=== PATIENT | male | born 1965 | race Caucasian/White ===

== ENCOUNTER → 2020-09-30 14:53 | Outpatient (CLI) | payer SELFPAY ==
--- NOTE | 2020-09-30 15:01 | ECHOD_ITS ---
Reason For Study: Abnormal EKG Procedure This was a 2D Doppler, Color Flow transthoracic echocardiogram. Exam performed in department. Left Ventricle Normal LV size. Left ventricular systolic function is normal. The estimated ejection fraction is 65 %. Stage 2 diastolic dysfunction. No regional wall motion abnormalities noted. Right Ventricle Normal RV size. Normal systolic function. Atria Normal left atrium. Normal right atrium. Mitral Valve Normal mitral valve. Tricuspid Valve Normal tricuspid valve. Aortic Valve Normal aortic valve. Trisinus/trileaflet aortic valve. Pulmonic Valve Normal pulmonic valve. Great Vessels Normal aortic root. The pulmonary artery is normal size. Normal inferior vena cava. Pericardium/Pleural No pericardial effusion. MMode/2D Measurements & Calculations LVIDd: 4.6 cm IVSd: 1.7 cm LA dimension: 4.3 cm LVIDs: 3.3 cm LVPWd: 1.3 cm FS: 29.1 % LAV(MOD-bp): 93.4 ml LA A4 area: 27.7 cm2 RA A4 area: 18.8 cm2 LAV(MOD-bp) Indexed: 44.1 ml/m2 LAV(MOD-sp2): 92.0 ml LAV(MOD-sp4): 91.8 ml Time Measurements MV dec time: 0.15 sec Doppler Measurements & Calculations MV E max odell: 89.1 cm/sec Lat Peak E' Odell: 11.0 cm/sec Med Peak E' Odell: 7.0 cm/sec MV A max odell: 49.4 cm/sec E/E' lat: 8.1 E/E' med: 12.8 MV E/A: 1.8 MV V2 max: 86.4 cm/sec MV P1/2t max odell: 87.0 cm/sec Ao V2 max: 126.2 cm/sec MV max P.0 mmHg MV P1/2t: 57.4 msec Ao max P.4 mmHg MV V2 mean: 42.6 cm/sec MV dec slope: 444.3 cm/sec2 MV mean P.91 mmHg MVA(P1/2t): 3.8 cm2 MV V2 VTI: 17.7 cm LV V1 max: 120.9 cm/sec PA V2 max: 99.2 cm/sec LV V1 max P.8 mmHg Interpretation Summary Normal LV size. Left ventricular systolic function is normal. The estimated ejection fraction is 65 %. No regional wall motion abnormalities noted. Stage 2 diastolic dysfunction. Ordering Physician: Rohit Mosqueda Referring Physician: Rohit Mosqueda Performed By: Alexandru Vernon RCS
== END ==
PROVIDERS: PCP Student in an Organized Health Care Education/Training Program; Referring Provider Internal Medicine Cardiovascular Disease; Visit Provider Internal Medicine Cardiovascular Disease
DX: R94.31 Abnormal electrocardiogram [ECG] [EKG] (principal); R06.00 Dyspnea, unspecified; C62.90 Malignant neoplasm of unspecified testis, unspecified whether descended or undescended
CPT/HCPCS: 93306

== ENCOUNTER 2020-10-02 11:25 | Day surgery (SDC) | payer SELFPAY ==
--- NOTE | 2020-09-28 12:34 | EKG12_ITS ---
Test Reason : PRE OP Blood Pressure : / mmHG Vent. Rate : 106 BPM Atrial Rate : 106 BPM P-R Int : 146 ms QRS Dur : 082 ms QT Int : 338 ms P-R-T Axes : 062 -06 175 degrees QTc Int : 448 ms Sinus tachycardia Septal infarct , age undetermined ST & T wave abnormality, consider anterolateral ischemia Abnormal ECG Confirmed by CLAUDINE BELLAMY, BARBRA ([id number]), art editor JAY RADER ([id number]) on 09/30/2020 6:07:39 AM Referred By: Mj Wolf Confirmed By:BARBRA CHOW MD
[2020-09-28 14:11] LABS: Anion Gap 4 (5-15); BUN 13 mg/dL (7-18); BUN/Creat Ratio 11.1 RATIO (10-20); Calcium,Total 8.9 mg/dL (8.5-10.1); Chloride 103 mmol/L (98-107); Creatinine, Serum 1.17 mg/dL (0.70-1.30); EST Glomerular Filtration Rate 69 mL/min (>60); Est Glom Filt Rate - Afr Amer 84 mL/min (>60); Glucose 82 mg/dL (74-106); Sodium Level 137 mmol/L (136-145)
[2020-09-30 15:45] VITALS: BMI 29.5
[2020-10-02] VITALS (9 sets, daily range): BP systolic 108–197; BP diastolic 71–104; PULSE 63–128; RESP 16–18; TEMP 36.3–37; O2SAT 93–100; BMI 29.1
--- NOTE | 2020-10-02 | TEST_PTH ---
PATIENT: SHERITA RADER LOC: [facility] [place] U#:[id number] AGE/SX: 55/M ROOM: RE10/02/[address]: Dr. Mj Wolf MD : 1965 BED: DIS: 10/02/2020 SPEC #: [id number] RECD: 10/02/20 14:01 STATUS: CARIDAD RELiza #: [id number] DIONNE: 10/02/20 00:[address]: Mj Wolf DEPT: SURGICAL PATHOLOGY RECD BY: Viry Souza ENTERED: 10/02/20 14:22 SP TYPE: TESTICLE OTHR DR: Dr. Randolph Maloney, DO Tissues: Testis, NOS Procedures: Frozen Section (charge) Surgery Specimen Level IV Surgery Specimen Level V HEADER OPERATION: Radical orchiectomy PRE-OP DIAGNOSIS: Abnormal findings on diagnostic imaging of left testicle TISSUE SUBMITTED: Left testicle, frozen section FROZEN SECTION DIAGNOSIS Left testicle, orchiectomy: Fibrous, chronic inflammation and markedly attenuated tubules and spermatogenesis. No evidence of carcinoma. AM:hunter 10/02/2020 Case has been reviewed in consultation with Dr. Burleson who concurs with the above diagnosis. IDC:KEMI MICROSCOPIC DIAGNOSIS Left testicle, radical orchiectomy: Diffuse chronic inflammation involving seminiferous tubule. Negative for carcinoma. See comment. KEMI:hunter 10/06/2020 COMMENT The inflammatory cell infiltrates predominantly centered around the seminiferous tubules and consist predominantly of lymphocytes and a few plasma cells and giant cells. Spermatogenesis is not seen. Correlation with clinical findings and appropriate follow up are necessary. Case has been reviewed in consultation with Dr. Coe who concurs with the above diagnosis. IDC:TARIK MICROSCOPIC DESCRIPTION Slides are reviewed. GROSS DESCRIPTION Received fresh for frozen section consultation labeled with the patient's name is a specimen designated left testicle. The specimen consists of a testicle with surrounding soft tissue. The specimen measures 13 x 6 x 3 cm. Dissection reveals a firm, huggins testes measuring 7.5 x 5 cm. A distinct rete testes is not identified. The superior and inferior epididymis are grossly unremarkable. The testicular parenchyma is firm and not spongy. The process involves the entire testes. A sales representative business courses portion of the testes is submitted for frozen section consultation (cassette 1). Protocol Manager sections are submitted as follows: 1 - testes, frozen section, 2 - tissue at margin of resection, 3 - presumed caput epididymis, 4 - presumed cauda epididymis, 5-10 - sales representative business courses sections of testes. / AM:hunter 10/05/20 TC:3 CPT: 44563, 77897, 05938
--- NOTE | 2020-10-02 08:04 | PCM.HP.STD ---
Problem List (1) Abnormal finding on diagnostic imaging of left testicle Status: Acute History of Present Illness Date of Admission: 10/02/20 Chief Complaint: Abnormal left testicle The patient is a 55 year old male who was noticed firm hard testicle since June has been treated with antibiotics I did ultrasound in the office recently and the testicle is definitely abnormal has higher echogenicity is firmer is harder on ultrasound it looks completely different than the right testicle which is completely normal. There are certainly concerned that this could be cancerous so given the abnormal findings on the ultrasound the enlarged firm testicle organ to proceed with a radical left orchiectomy. Past Medical History Past Medical History (Chronic Problems): Chronic Problems (Last Reviewed 09/30/20 @ 16:[address] Rohit Mosqueda MD) Essential (primary) hypertension (Chronic) Nicotine dependence (Chronic) Medical History: Medical History (Last Reviewed 09/30/20 @ 16:[address] Rohit Mosqueda MD) Essential (primary) hypertension (Chronic) I10 Testicular cancer (Suspected) C62.90 Nicotine dependence (Chronic) F17.200 MICKY (generalized anxiety disorder) F41.1 Allergies No Known Allergies Allergy (Verified 09/30/20 15:37) Home Medications: Ambulatory Orders Medication Instructions Recorded Ascorbic Acid [Vitamin C] 500 mg PO DAILY@0800 09/25/20 Cholecalciferol (VIT D3) [Vitamin 1,000 unit PO DAILY 09/25/20 D] Garlic 100 mg PO DAILY 09/25/20 hydrochlorothiazide 12.5 mg tablet 12.5 mg PO DAILY 09/30/20 hydroxyzine HCl 25 mg tablet 25 mg PO TID PRN 09/30/20 lisinopril 20 mg tablet 20 mg PO DAILY #60 tab 09/30/20 Surgical History: no surgical history Smoking Status: Current every day smoker Tobacco Use: Cigarettes Review of Systems Constitutional: Denies: Chills, Fever, Weight Change HEENT: Denies: Head Aches, Sinus Congestion, Sinus Drainage Cardiovascular: Denies: Chest Pain, Palpitations Respiratory: Denies: Cough, Shortness of breath at rest, Sputum production Gastrointestinal: Denies: Abdominal Pain, Nausea, Vomiting Genitourinary: Denies: Dysuria Musculoskeletal: Denies: Joint Pain, Joint Tenderness Skin: Denies: Rash, Wounds Neurological: Denies: Numbness, Tingling, Focal weakness Psychiatric: Denies: Anxiety, Depression, Homicidal Ideations, Suicidal Ideations Hematologic/ Lymphatic: Denies: Easy Bruising, Easy Bleeding VTE Information - Inpt Only VTE Present on Admission: No - Physical Exam Vitals/I&O's: Weight: 93.894 kg Body Mass Index (BMI) 29.5 General: Alert, Oriented x3, Cooperative HEENT: Atraumatic, PERRLA, EOMI, Normocephalic Neck: Supple, No JVD, Negative Carotid Bruits Lungs: Clear to auscultation, Normal air movement Cardiovascular: Regular rate, No murmurs Abdomen: Bowel Sounds Present, Soft, Non Tender Extremities: No edema, Capillary Refill Less than 3 Seconds Skin: No rashes, No breakdown Musculoskeletal: No Tenderness to Palpation of Joints or Extremities Neurological: Cranial nerves II-XII grossly intact Psych/Mental Status: Normal Affect, Appropriate Microbiology Past 72 Hours 10/01/20 08:35 Interface Orders SARS-CoV-2 Antigen (Rapid) - Final Current Medications Cefazolin Sodium 2 gm/ Sodium (Chloride) 110 mls @ 150 mls/hr IV PREOP ONE Stop: 10/02/20 15:38 Assessment/Plan All Active Problems (Last Reviewed 09/30/20 @ 16:[address] Rohit Mosqueda MD) Abnormal finding on diagnostic imaging of left testicle (Acute) Encounter for pre-operative cardiovascular clearance (Acute) Abnormal electrocardiogram (Acute) Plan to proceed with a left radical orchiectomy patient understands that it is possible that this testicle which looks abnormal is hard and firm may not be cancerous it may just be scar tissue or inflammation or infection that is not resolving but given the findings that could be malignancy were to proceed with a left radical orchiectomy he is willing to accept that consequence it may not be cancer but given the potential he is willing to undergo surgery to remove the testicle.
[2020-10-02] MEDS: Lactated Ringers 1,000 ML 100 ML IV ×2 (12:18→14:43)
[2020-10-02] MEDS: Cefazolin 2 GM in 0.9% Normal Saline 100 ML IV (13:31)
--- NOTE | 2020-10-02 13:32 | DCINST_ITS ---
Discharge Diet: Light diet - advance as tolerated Discharge Activity: Return to Normal Activity, May not drive while taking narcotic pain medications. Call your doctor if your incision/area has: Continuous Slow Oozing, Sudden Increased Bleeding, Increased Pain/ Swelling, Increased Redness, Foul Smelling Discharge, Swelling at the incision site Call your doctor if you observe: Fever of 101 or Higher Suture Line Care: Avoid Pulling/Pushing, Avoid Pinching/Bending Allergies/Adverse Reactions: Allergies No Known Allergies Allergy (Verified 09/30/20 15:37) Medications to take at Discharge Ascorbic Acid [Vitamin C] 500 mg PO DAILY@0800 09/25/20 Cholecalciferol (VIT D3) [Vitamin D] 1,000 unit PO DAILY 09/25/20 Garlic 100 mg PO DAILY 09/25/20 hydrochlorothiazide 12.5 mg tablet 12.5 mg PO DAILY 09/30/20 hydroxyzine HCl 25 mg tablet 25 mg PO TID PRN 09/30/20 lisinopril 20 mg tablet 20 mg PO DAILY #60 tab 09/30/20 Primary Care Physician: Randolph Maloney DO [Primary Care Provider] - Test Results: Test results from this visit will be discussed in further detail at your follow- up appointment, if applicable. Please Follow Up With: Mj Wolf MD When: in 2 weeks, please call to make an appointment.
[2020-10-02] MEDS: Bupivacaine Mpf 0.5% 30 ML VIAL (14:10)
--- NOTE | 2020-10-02 14:11 | PCM.OPRPT ---
Problem List (1) Abnormal finding on diagnostic imaging of left testicle Status: Acute Report of Operation Date of Procedure: 10/02/20 Pre-Operative Diagnosis: Abnormal left testicle firm and hard Post-Operative Diagnosis: Same Surgery/Procedure Performed:: Left radical orchiectomy inguinal approach Description of Surgical Findings:: Patient was seen in the preoperative area, he has an abnormal left testicle which on exam is abnormal and also has a ultrasound is abnormal on the left side. Because of this we discussed the potential risk for malignancy and working to proceed with a radical orchiectomy on the left side. He understands is possible that the testicle even the looks abnormal and feels abnormal may not be cancerous it could be scar tissue it could be inflammation or infection. He understands no guarantee that it is cancer. Also there is no guarantees that if we remove the testicle and he has cancer is cured and the patient may require more treatments such as chemotherapy and radiation if he does have testicle cancer. Preoperative tumor markers were drawn. We discussed the risk of the procedure including risk of getting a hernia at the site of surgery, infection or bleeding. We also discussed the possibility of low testosterone level and infertility with one testicle. Patient was taken back to the operating room at the smooth induction of anesthesia. The penis and genitals were prepped and draped in usual sterile fashion, the abdomen was shaved as well as the testicles were shaved. The side of the orchiectomy which is the left side was marked. A time out was performed. I then made a inguinal incision on the left side, dissected through the skin superficial fat Cindy's fascia with it was then incised there was a small blood vessel across Cindy's fascia that was cauterized and suture-ligated. The I then came across the top of the ankle canal and opened up the inguinal canal with a joker. We then encircled the blood vessels and performed high ligation of the testicle I then dissected out the testicle on the left side and delivered it from the testicle through the inguinal incision. We then dissected using electrocautery to free the testicle from the scrotum and transected through the gubernaculum. And the testicle was placed into a container and sent to pathology. We then made sure that the vessels were clear and there were not bleeding we irrigated the wound we closed the anterior layer of the inguinal canal with interrupted stitches and then we closed the Cindy's fascia and then closed the skin with subcuticular stitches. All needles stitches were accounted for. There was a complete count at the end of the case after closure. Patient was taken back to the PACU in stable condition. Type of Anesthesia:: General Drains: none - Admit VTE Documentation VTE Present on Admission: No VTE Mechan Device Prophylaxis: SCD's
[2020-10-02] MEDS: oxyCODONE 5 MG Tablet PO (15:45)
== END 2020-10-02 18:07 | disposition home or self-care (01) ==
LOC: SDC 11:32 → AC 11:33
PROVIDERS: Anesthesiology; PCP Student in an Organized Health Care Education/Training Program; Referring Provider Urology; Visit Provider Urology
PROC: (CPT 54520; principal; 2020-10-02 13:35)
DX: R93.812 Abnormal radiologic findings on diagnostic imaging of left testicle (principal); R94.31 Abnormal electrocardiogram [ECG] [EKG]; I10 Essential (primary) hypertension; Z85.47 Personal history of malignant neoplasm of testis; F17.210 Nicotine dependence, cigarettes, uncomplicated
CPT/HCPCS: 54520; 36415; 80048; 87426; 88305; 88307; 88309; 88331; 93005; C9803; J7120; J2405